=== PATIENT | female | born 1980 | race Caucasian/White ===

== ENCOUNTER 2016-11-28 06:08 | Inpatient (IN) ==
--- NOTE | 2016-11-27 20:31 | Discharge Summary ---
<Giovana Le - Last Filed: 11/27/16 20:27> Date of Encounter: 12/01/16 - Discharge Diagnosis (1) Aseptic loosening of prosthetic knee Priority: Primary Status: Acute Qualifiers: Encounter type: initial encounter Qualified Code(s): T84.038A - Mechanical loosening of other internal prosthetic joint, initial encounter; Z96.659 - Presence of unspecified artificial knee joint (2) Rheumatoid arthritis Priority: Secondary Status: Chronic Qualifiers: Rheumatoid arthritis location: unspecified site Rheumatoid factor presence : unspecified presence Qualified Code(s): M06.9 - Rheumatoid arthritis, unspecified (3) Asthma Priority: Secondary Status: Chronic Qualifiers: Asthma severity: unspecified severity Asthma complication type: uncomplicated Qualified Code(s): J45.909 - Unspecified asthma, uncomplicated - Discharge Medications Home Medications: Aspirin Enteric Coated [Aspirin EC] 325 mg PO BID #42 tablet. 11/27/16 [Rx] OxyCODONE Immed Rel [Roxicodone 5 MG] 5 - 10 mg PO Q6HR PRN #40 tablet 11/27/16 [Rx] Albuterol Sulfate [Albuterol Inhaler] 2 puff IH Q4HR PRN 11/28/16 [History] Fluticasone Propionate Nasal [Flonase] 1 spr NS BID 11/28/16 [History] Fluticasone Propionate [Flovent Hfa] 1 puff IH BID 11/28/16 [History] Montelukast [Singulair] 10 mg PO DAILY 11/28/16 [History] Pantoprazole Sodium [Protonix] 40 mg PO DAILY 11/28/16 [History] Allergies/Adverse Reactions: Allergies cephalexin [From Keflex] Allergy (Verified 11/29/16 23:17) Hives Primary care physician: Ginger Kirkpatrick, - Patient Status Disposition: Home, Self-Care Condition: Good - Discharge Instructions Follow Up With: Juanjose Hall MD [Partnered Physician] - 12/27/16 7:45 am Giovana Le, NADINE [Physician Product/Device Technologist] - 12/07/16 8:30 am Ginger Kirkpatrick MD [Primary Care Provider] - - Hospital Course Hospital course: Ms. Fernandez is a 36 year old female - Time Spent with Patient Total time spent providing and/or coordinating discharge services: <Juanjose Hall - Last Filed: 11/30/16 07:32> Date of Encounter: 11/30/16 Time of Encounter: 07:32 - Discharge Diagnosis (1) Aseptic loosening of prosthetic knee Priority: Primary Status: Acute Qualifiers: Encounter type: subsequent encounter Qualified Code(s): T84.038D - Mechanical loosening of other internal prosthetic joint, subsequent encounter; Z96.659 - Presence of unspecified artificial knee joint (2) Asthma Priority: Secondary Status: Chronic Qualifiers: Asthma severity: unspecified severity Asthma complication type: uncomplicated Qualified Code(s): J45.909 - Unspecified asthma, uncomplicated (3) Rheumatoid arthritis Priority: Secondary Status: Chronic Qualifiers: Rheumatoid arthritis location: unspecified site Rheumatoid factor presence : unspecified presence Qualified Code(s): M06.9 - Rheumatoid arthritis, unspecified Date of admission: 11/28/16 06:25 Primary care physician: iGnger Kirkpatrick, - Patient Status Functional capacity at discharge: uses cane/walker Overall status at discharge: patient is progressing back to baseline - Hospital Course Hospital course: Ms. Fernandez is a 36 year old female The patient had an uneventful postoperative course. They received antibiotics and physical therapy and were discharged in stable condition. There will follow -up in the office in 2 weeks. Aspirin DVT prophylaxis - Time Spent with Patient Total time spent providing and/or coordinating discharge services:
--- NOTE | 2016-11-28 06:25 | History & Physical Report ---
Date of Encounter: 11/28/16 Time of Encounter: 06:25 24 Hour HP Update - Instructions Instructions: If the History and Physical is less than 30 days old and was completed prior to A.M. admission and or procedure and has NOT been updated on calendar day of procedure please complete this update prior to performing procedure. - Update Patient reports changes in Medical Condition: No Changes in assessment/condition: No Changes in Medication: No Preop tests/diagnostics Reviewed: Yes Surgery Remains Indicated: Yes Consent for Planned Operative Procedure(s) Verified: Yes - Pre-Operative Checklist Preoperative Checklist Indicated: No Prophylactic Antibiotic Ordered: Yes Is VTE Prophylaxis Indicated?: Yes
[2016-11-28] MEDS ORDERED: Clindamycin 900 MG/50 ML 900 MG/50 ML IV.SOLN IVPB ONE (06:35)
[2016-11-28] MEDS ORDERED: Albuterol 2.5 MG/3 ML NEBULIZER IH ONE (06:37)
[2016-11-28] MEDS ORDERED: Ringers Solution, Lactated 1,000 ML IVC SCH ×2 (06:45→10:06)
[2016-11-28] MEDS ORDERED: Famotidine 20 MG/2 ML VIAL IVP ONE (07:06)
[2016-11-28] MEDS ORDERED: Scopolamine Patch 1.5 MG PATCH.TD72 TD ONE (07:06)
--- NOTE | 2016-11-28 07:10 | Anesthesia Evaluation PreOp ---
Date of Encounter: 11/28/16 Time of Encounter: 07:10 - Past History Planned Operation: Right TKA Revision Cardiac History: Denies any Significant Hx, Other (Anemia) Pulmonary History: Asthma CHILD SUPPORT SPECIALIST History: Denies Any Significant HX Other Medical History: GERD Anesthesia History: Past Anesthesia (Nausea/Vomitting) : No Test: Negative Alcohol Use: none Drug use: none Medications and Allergies Aspirin Enteric Coated [Aspirin EC] 325 mg PO BID #42 tablet. 11/27/16 [Rx] OxyCODONE Immed Rel [Roxicodone 5 MG] 5 - 10 mg PO Q6HR PRN #40 tablet 11/27/16 [Rx] Allergies cephalexin [From Keflex] Allergy (Unverified 11/22/16 10:53) See Comments - Meds/Allergy Pre-op Review Medications Reviewed: Yes Allergies Reviewed: Yes Beta Blockers on Current Med List: No Anesthesia Results - Labs Laboratory Tests 11/22/16 11/22/16 11/22/16 10:53 10:53 10:53 Hgb 14.0 Hct 40.8 Plt Count 255 PT 11.3 INR 1.0 APTT 27.4 Sodium 136 Potassium 4.0 BUN 14 Creatinine 0.74 Anesthesia Exam O2 Sat Height 1.68 m Height 1.68 m Height 1.68 m Weight 80.739 kg Weight 80.739 kg Weight 80.739 kg O2 Sat by Pulse Oximetry 100 Vital Signs Temp Pulse Resp BP Pulse Ox 98.2 F 81 18 100/71 100 11/28/16 06:23 11/28/16 06:23 11/28/16 06:23 11/28/16 06:23 11/28/16 06:23 Height: 5'5 Weight: 183 lbs NPO (# of Hours): MN - HEENT Pupil (Motor): Pupils equal, EOMI Mallampati: II Teeth: Normal Oral Opening: Greater than 3 - CHILD SUPPORT SPECIALIST LOC: Oriented CHILD SUPPORT SPECIALIST Motor: Normal RUE, Normal LUE, Normal RLE, Normal LLE, Normal Face CHILD SUPPORT SPECIALIST Sensory: Normal: RUE, LUE, RLE, LLE, Face - Cardiac Rhythm: Regular Murmur: None JVD: No Carotid Bruit: No - Pulmonary Breath Sounds: bilateral Clear Respiratory Effort: Symmetrical Anesthesia Assess/Plan ASA Score: 2 Modified Laurel Scale for Level of Consciousness: Cooperative, oriented, and tranquil Anesthetic Plan: General, Regional Monitoring Plan: Standard Monitors Recovery Plan: PACU (Discussed GA and RA, agrees to proceed)
[2016-11-28] MEDS ORDERED: *HR* FentaNYL (PF) 100 MCG/2 ML VIAL ONE (07:11)
[2016-11-28] MEDS ORDERED: *HR* Propofol 200 MG/20 ML VIAL IVP ONE (07:12)
[2016-11-28] MEDS ORDERED: *HR* Midazolam HCl 2 MG/2 ML VIAL ONE ×2 (07:12→07:15)
[2016-11-28] MEDS ORDERED: Lidocaine -MPF 2% 2 ML VIAL ONE (07:17)
[2016-11-28] MEDS ORDERED: Tetracaine/PF 20 MG/2 ML AMPUL SPINA ONE (07:17)
[2016-11-28] MEDS ORDERED: Ketamine *HR* 500 MG/10 ML MDV ONE (07:18)
--- NOTE | 2016-11-28 07:36 | Anesthesia Procedures ---
Date of Encounter: 11/28/16 Time of Encounter: 07:10 Procedures: Anesthesia - Nerve Block Procedure Date: 11/28/16 Time: 07:30 Pre-op Diagnosis: Effusion Rt TKA Surgical Procedure: Revision Rt TKA Checklist: Correct Patient Identifier Correct side: Right Blood Thinner: No Monitor Applied: EKG Supplemental Oxygen via Nasal Cannula (L/min): 2 Sedation: Versed (mg): 4 Sedation: Fentanyl (mcg): 50 Indication: Post Op Analgesia Pre-op Neuro Deficits: No Block Type: Femoral Catheter placed: No Depth at skin (cm): 4 Sterile Technique: Yes Ultrasound used: Yes Anatomy identified: Yes Visual spread of Local: Yes Neuro Stimulation: Yes Nerve Stimulator Range: 0.2 - 0.4 mA Blood on Needle Aspiration: No Smooth Injection of Local: Yes Pain with Injection of Local: No Prep: Chlorhexadine, Alcohol Needle: 22 x 50 mm Stimuplex Local: Tetracaine (40mg), Other (Bupivacaine 0.5%) Volume (cc): 30 Number of Attempts: 1 Complications: None/effective block Vitals: Vital Signs/O2 Sat/Glucose, Most Current Temp Pulse Resp BP Pulse Ox 11/28/16 07:30 88 102/74 95 11/28/16 07:21 76 18 119/67 100 11/28/16 06:23 98.2 F 81 18 100/71 100
[2016-11-28] MEDS ORDERED: *HR* Promethazine 25 MG/ML VIAL IVP PRN (07:45)
[2016-11-28] MEDS ORDERED: Ondansetron 4 MG/2 ML VIAL ONE (07:55)
[2016-11-28] MEDS ORDERED: Dexamethasone 4 MG/ML VIAL ONE (07:55)
[2016-11-28] MEDS ORDERED: *HR* HYDROmorphone 2 MG/ML SYRINGE ONE (07:59)
[2016-11-28] MEDS ORDERED: Ketorolac 30 MG/ML VIAL ONE (08:25)
--- NOTE | 2016-11-28 08:35 | Orthopedic Operative Note ---
Date of procedure: 11/28/16 Pre-op diagnosis: Recurrent effusions aseptic loosening right total knee Post-op diagnosis: same Procedure: Procedure: Right revision tibial component Estimated blood loss: 200 cc Hardware: Arthrex tibia size 6, 14 x 50 stem, 18 PS Elicia Exam Under anesthesia: Full flexion full extension well-healed incision swelling no erythema no varus valgus instability Procedural Notes: Loosening of tibial component significant effusion extensive synovitis Operative procedure: The patient was brought to the operating room and placed on the operating room table. After general anesthesia was administered the operative knee was examined. Findings were noted in the exam under anesthesia. The operative extremity was prepped and draped in sterile surgical fashion. The patient received IV antibiotics prior to skin incision. A standard midline incision was made centered over the patella. The incision was made through the skin and subcutaneous tissue through the old incision. A medial parapatellar tendon approach was performed. Care was taken to preserve tissue along the medial aspect of the patella. And to protect the patella tendon. The deep MCL was released off the medial tibia. The infra patella fat pad was excised. Cultures were obtained as well as Gram stain. 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 An extensive synovectomy was performed. The knee was brought into flexion the tibial poly-was removed. The femur was well fixed. Attention was then turned to the tibial component. The tibial component was loose and removed with an osteotome without any bone loss. Tibia was recut just below the level of the cement mantle. The tibia was prepared first sized to a 6 reamed to a 14 x 50 stem. The finishing punch was seated. Trial had good fit and fixation. Trial reduction revealed full extension and full flexion no varus valgus instability with an 18 PS Elicia. Trial components removed knee sat for 2 minutes with a Betadine saline solution. It was irrigated out with pulse irrigation. Components were assembled on the back table. The tibia cemented. The 18 PS Elicia was seated and secure. The had full flexion and full extension and excellent patella tracking no varus valgus instability. After the cement hardened the knee was irrigated out again. The knee was taken through a range of motion had excellent patella tracking. The extensor mechanism was closed with a running #2 Fiberwire suture and a running #2 PDS suture. The deep tissue was irrigated and closed deep with #1 PDS suture superficially with 0 PDS suture. The skin was closed with Dermabond and skin jc. The patient was placed in a sterile dressing and postoperative brace. They were extubated and transferred to recovery room in stable condition. Anesthesia: [facility] Surgeon: Juanjose Hall Demurrage Man: Giovana Le Condition: stable Disposition: PACU
[2016-11-28] MEDS ORDERED: *HR* HYDROmorphone (PF) 1 MG/ML SYRINGE ONE ×2 (09:20→09:31)
[2016-11-28] MEDS: *HR* HYDROmorphone (PF) 1 MG/ML SYRINGE IVP PRN ×6 (09:25→23:17)
[2016-11-28 09:35] LABS: Hematocrit 36.5 % (35.3-44.9); Hemoglobin 12.8 g/dL (11.5-15.4)
--- NOTE | 2016-11-28 09:53 | Anesthesia Evaluation Post Op ---
Date of Encounter: 11/28/16 Time of Encounter: 09:51 - Vital Signs Vital Signs: Vital Signs/O2 Sat, Most Current Temp Pulse Resp BP Pulse Ox 98.0 F 83 16 119/72 96 11/28/16 09:35 11/28/16 09:45 11/28/16 09:45 11/28/16 09:45 11/28/16 09:45 - Lungs Lungs: Clear Ascult./Percussion - Airway Airway: Non-obstructed - Cardiovascular Regular Rate - Mental Status Mental Status: Alert & Oriented, Answers Appropriately - Pain Pain Scale: 4 Pain Scale used: Numeric (1 - 10) - Nausea Vomiting Nausea Vomiting: Not Present - Hydration Hydration: Ice chips, Has not voided - Discharge PostOp Status: Transfer Patient to floor
[2016-11-28] MEDS ORDERED: Ondansetron 4 MG/2 ML VIAL IVP PRN (10:06)
[2016-11-28] MEDS ORDERED: Sennosides 8.6 MG TABLET PO PRN (10:06)
[2016-11-28] MEDS ORDERED: MOM Conc 10 ML UD.LIQ PO PRN (10:06)
[2016-11-28] MEDS ORDERED: Albuterol Neb 1.25 MG/3 ML VIAL IH ONE (10:06)
[2016-11-28] MEDS ORDERED: *HR* OxyCODONE Immed Rel 5 MG TABLET PO PRN (10:06)
[2016-11-28] MEDS ORDERED: Naloxone 0.4 MG/ML INJ IVP PRN (10:06)
[2016-11-28] MEDS ORDERED: Acetaminophen 325 MG TABLET PO PRN (10:06)
[2016-11-28] MEDS ORDERED: Temazepam 15 MG CAPSULE PO PRN (10:06)
[2016-11-28] MEDS ORDERED: Clindamycin 900 MG/50 ML 900 MG/50 ML IV.SOLN IVPB SCH (10:06)
[2016-11-28] MEDS: FLUTICASONE PROPIONATE IH SCH ×2 (13:15→20:38)
[2016-11-28] MEDS: Fluticasone Propionate Nasal 50 MCG/SPRAY BOTTLE NS SCH ×2 (13:16→20:38)
[2016-11-28] MEDS ORDERED: Acetaminophen IV 1,000 MG/100 ML INFUS..BTL IVPB PRN (14:52)
[2016-11-28] MEDS: Clindamycin 900 MG/50 ML 900 MG/50 ML IV.SOLN IVPB SCH ×2 (15:37→23:17)
[2016-11-28] MEDS: *HR* Enoxaparin 30 MG/0.3 ML SYRINGE SQ SCH (17:32)
[2016-11-28] MEDS ORDERED: *HR* Enoxaparin 30 MG/0.3 ML SYRINGE SQ SCH (18:00)
[2016-11-28] MEDS: *HR* OxyCODONE Immed Rel 5 MG TABLET PO PRN (20:36)
[2016-11-29] MEDS: *HR* OxyCODONE Immed Rel 5 MG TABLET PO PRN ×4 (04:54→23:23)
[2016-11-29] MEDS: *HR* Enoxaparin 30 MG/0.3 ML SYRINGE SQ SCH ×2 (04:55→16:34)
[2016-11-29] MEDS: Ketorolac 30 MG/ML VIAL IVP PRN (06:31)
--- NOTE | 2016-11-29 06:33 | Orthopedics Progress Note ---
Date of Encounter: 11/29/16 Time of Encounter: 06:33 - Assessment and Plan (1) Aseptic loosening of prosthetic knee Current Visit: Yes Status: Acute Qualifiers: Encounter type: subsequent encounter Qualified Code(s): T84.038D - Mechanical loosening of other internal prosthetic joint, subsequent encounter; Z96.659 - Presence of unspecified artificial knee joint (2) Asthma Current Visit: Yes Status: Chronic Qualifiers: Asthma severity: unspecified severity Asthma complication type: uncomplicated Qualified Code(s): J45.909 - Unspecified asthma, uncomplicated (3) Rheumatoid arthritis Current Visit: Yes Status: Chronic Qualifiers: Rheumatoid arthritis location: unspecified site Rheumatoid factor presence : unspecified presence Qualified Code(s): M06.9 - Rheumatoid arthritis, unspecified Subjective Interval history: Patient was seen this morning doing well without complaints. Afebrile vital signs stable. Operative extremity: Neurovascularly intact Dressing clean dry and intact Calves nontender Assessment and plan: Continue with postoperative care Hematocrit 32 Objective Vital signs: Vital Signs Temp Pulse Resp BP Pulse Ox 11/29/16 04:50 98 F 67 18 108/68 98 11/28/16 23:52 98.4 F 78 17 99/63 96 11/28/16 19:35 98.8 F 80 17 121/67 96 11/28/16 15:08 98.4 F 74 18 106/63 98 11/28/16 14:56 77 16 112/72 98 11/28/16 13:08 97.0 F L 77 16 112/72 98 11/28/16 12:30 82 16 107/71 98 11/28/16 11:20 97.4 F L 80 16 104/67 92 L 11/28/16 10:37 97.6 F 69 18 110/79 98 11/28/16 10:08 97.5 F L 71 16 117/70 92 L 11/28/16 09:55 98.0 F 80 16 117/77 97 11/28/16 09:45 83 16 119/72 96 11/28/16 09:35 98.0 F 83 16 115/73 97 11/28/16 09:25 80 16 112/78 98 11/28/16 09:15 74 12 123/84 98 11/28/16 09:05 97.0 F L 74 12 116/94 100 11/28/16 07:42 87 18 102/65 99 11/28/16 07:30 88 102/74 95 11/28/16 07:21 76 18 119/67 100 Intake and Output 11/28/16 11/28/16 11/29/16 15:59 23:59 07:59 Intake Total 0 / 0 150 / 150 Balance 0 / 0 150 / 150 Intake: IV Fluids 50 / 50 Cleocin 900 MG/50 ML 900 50 / 50 mg In 50 ml @ 50 mls/hr IVPB Q8HR [facility] Rx#: [id number] Oral 0 / 0 100 / 100 Other: Meal Dinner Percent of Meal Consumed 100% - Labs CBC & BMP: 11/29/16 05:02 Labs: Abnormal lab results Hgb 11.0 g/dL (11.5-15.4) L D 11/29/16 05:02 Hct 32.0 % (35.3-44.9) L 11/29/16 05:02 - VTE Documentation of Mechanical Device: Venous foot pump, device Consult Discharge Plan - Plan Referrals: Ginger Kirkpatrick MD [Primary Care Provider] -
[2016-11-29 06:38] LABS: BUN/Creatinine Ratio 14 (6-26); Blood Urea Nitrogen 10 mg/dL (7-20); Calcium 8.4 mg/dL (8.6-10.8); Carbon Dioxide 24 mEq/L (19-29); Chloride 103 mEq/L (98-109); Glucose 111 mg/dL (70-99); Osmolality,Calculated 282 (280-300); Potassium 3.7 mEq/L (3.5-4.5); Sodium 136 mEq/L (136-145); eGFR For African Americans > 60 (> 60); eGFR For Non-African Americans > 60 (> 60)
[2016-11-29] MEDS: FLUTICASONE PROPIONATE IH SCH ×2 (07:26→20:46)
[2016-11-29] MEDS: Fluticasone Propionate Nasal 50 MCG/SPRAY BOTTLE NS SCH ×2 (07:27→20:46)
[2016-11-29] MEDS: *HR* HYDROmorphone (PF) 1 MG/ML SYRINGE IVP PRN (20:46)
[2016-11-30] MEDS: Ketorolac 30 MG/ML VIAL IVP PRN ×2 (00:51→08:16)
[2016-11-30] MEDS: *HR* Enoxaparin 30 MG/0.3 ML SYRINGE SQ SCH (05:06)
[2016-11-30] MEDS: *HR* OxyCODONE Immed Rel 5 MG TABLET PO PRN ×2 (05:06→10:41)
[2016-11-30] MEDS: *HR* HYDROmorphone (PF) 1 MG/ML SYRINGE IVP PRN (05:59)
[2016-11-30 06:42] LABS: Hematocrit 33.3 % (35.3-44.9); Hemoglobin 11.5 g/dL (11.5-15.4)
[2016-11-30 06:54] LABS: BUN/Creatinine Ratio 14 (6-26); Blood Urea Nitrogen 10 mg/dL (7-20); Calcium 8.3 mg/dL (8.6-10.8); Carbon Dioxide 24 mEq/L (19-29); Chloride 103 mEq/L (98-109); Glucose 107 mg/dL (70-99); Osmolality,Calculated 284 (280-300); Potassium 3.6 mEq/L (3.5-4.5); Sodium 137 mEq/L (136-145); eGFR For African Americans > 60 (> 60); eGFR For Non-African Americans > 60 (> 60)
--- NOTE | 2016-11-30 07:33 | Orthopedics Progress Note ---
Date of Encounter: 11/30/16 Time of Encounter: 07:33 - Assessment and Plan (1) Aseptic loosening of prosthetic knee Current Visit: Yes Status: Acute Qualifiers: Encounter type: subsequent encounter Qualified Code(s): T84.038D - Mechanical loosening of other internal prosthetic joint, subsequent encounter; Z96.659 - Presence of unspecified artificial knee joint (2) Asthma Current Visit: Yes Status: Chronic Qualifiers: Asthma severity: unspecified severity Asthma complication type: uncomplicated Qualified Code(s): J45.909 - Unspecified asthma, uncomplicated (3) Rheumatoid arthritis Current Visit: Yes Status: Chronic Qualifiers: Rheumatoid arthritis location: unspecified site Rheumatoid factor presence : unspecified presence Qualified Code(s): M06.9 - Rheumatoid arthritis, unspecified Subjective Interval history: Patient was seen this morning doing well without complaints. Afebrile vital signs stable. Operative extremity: Neurovascularly intact Dressing clean dry and intact Calves nontender Assessment and plan: Continue with postoperative care Hematocrit 33 discharged today Objective Vital signs: Vital Signs Temp Pulse Resp BP Pulse Ox 11/30/16 06:32 98.1 F 74 16 127/78 96 11/29/16 23:19 97.9 F 70 16 122/74 98 11/29/16 20:49 97.7 F 60 16 125/52 89 L 11/29/16 15:35 98.6 F 83 18 98/59 97 11/29/16 13:53 108/66 11/29/16 11:07 97.6 F 80 18 93/60 99 Intake and Output 11/29/16 11/29/16 11/30/16 15:59 23:59 07:59 Intake Total 220 / 220 Balance 220 / 220 Intake: IV Fluids 100 / 100 Ofirmev 1,000 mg In 100 100 / 100 ml @ 400 mls/hr IVPB Q6HR PRN Rx#:[id number] Oral 120 / 120 Other: Meal Lunch Percent of Meal Consumed 100% # Voids 1 4 - Labs CBC & BMP: 11/30/16 05:56 11/30/16 05:56 Labs: Abnormal lab results Hct 33.3 % (35.3-44.9) L 11/30/16 05:56 Glucose 107 mg/dL (70-99) H 11/30/16 05:56 Calcium 8.3 mg/dL (8.6-10.8) L 11/30/16 05:56 - VTE Documentation of Mechanical Device: Venous foot pump, device Consult Discharge Plan - Plan Referrals: Juanjose Hall MD [Partnered Physician] - 12/27/16 7:45 am Giovana Le, PAC [Physician Board Liner Operator] - 12/07/16 8:30 am Ginger Kirkpatrick MD [Primary Care Provider] -
[2016-11-30] MEDS: Fluticasone Propionate Nasal 50 MCG/SPRAY BOTTLE NS SCH (08:15)
[2016-11-30] MEDS: FLUTICASONE PROPIONATE IH SCH (10:58)
[2016-11-30 11:30] VITALS: BP 129/76
== END 2016-11-30 10:59 | disposition home or self-care (01) | DRG 302 ==
LOC: SAMDAY 06:08 → 3NENU 06:25
PROVIDERS: ADMIT Orthopaedic Surgery; ATTEND Orthopaedic Surgery

== ENCOUNTER 2016-11-30 20:04 | Observation (INO) ==
--- NOTE | 2016-11-30 20:28 | Emergency Department Note ---
Disposition Clinical Impression: Leg edema, right, Postoperative pain of right knee, Acute edema, Discoloration of skin, Anemia Disposition: Admitted As Inpatient General Adult HPI - General Chief complaint: ED Extremity Problem,Nontraumatic Stated complaint: R leg swelling, Red, fever SP 11/28 Time Seen by Provider: 11/30/16 20:27 Source: patient Limitations: no limitations - History of Present Illness HPI Narrative: 36-year-old female status post knee surgery reports the emergency department after being discharged from the hospital earlier today. The patient reports her right leg swelled up suddenly and became increasingly painful. The patient denies any new injury. There has been no coldness blueness numbness or weakness in the right lower extremity. There is no history of fever. The patient denies chest pain short of breath or abdominal pain. She states she was receiving Lovenox injections in the hospital, but was switched to aspirin earlier today. The patient has had no left lower extremity swelling. She has had no back pain or urinary symptoms. No falls or weakness or numbness of the arms or legs no bowel or bladder problems. There is no history of headache neck stiffness or rash. The patient denies at this time. She reports she took pain medications at home are not sufficient for her pain. She called her personal surgeon Dr. Hall, who recommended she come to the ED for evaluation for DVT. Pain Scale: 10 - Related Data Home Medications Medication Instructions Recorded Confirmed RX: Albuterol Sulfate [Albuterol 2 puff IH Q4HR PRN 11/28/16 11/28/16 Inhaler] RX: Fluticasone Propionate Nasal 1 spr NS BID 11/28/16 11/28/16 [Flonase] RX: Fluticasone Propionate 1 puff IH BID 11/28/16 11/28/16 [Flovent Hfa] RX: Montelukast [Singulair] 10 mg PO DAILY 11/28/16 11/28/16 RX: Pantoprazole Sodium [Protonix] 40 mg PO DAILY 11/28/16 11/28/16 Previous Rx's Medication Instructions Recorded RX: Aspirin Enteric Coated 325 mg PO BID #42 tablet. 11/27/16 [Aspirin EC] RX: OxyCODONE Immed Rel 5 - 10 mg PO Q6HR PRN #40 tablet 11/27/16 [Roxicodone 5 MG] Allergies Allergy/AdvReac Type Severity Reaction Status Date / Time cephalexin [From Keflex] Allergy Hives Verified 11/29/16 23:17 All systems ED: reviewed and negative except as stated. Past Medical History - Past Medical History Medical history: Reports: other (Knee surgery) Surgical history: Reports: other Psychiatric history: Reports: no psych history - Social History Smoking Status: Never smoker Smokeless Tobacco Status: No Alcohol use: Reports: none Drug use: Reports: none Physical Exam - General Limitations: no limitations General appearance: alert, in no apparent distress - Head Head exam: atraumatic, normocephalic, normal inspection - Eye Eye exam: Present: normal appearance, PERRL, EOMI - ENT ENT exam: normal exam, normal oropharynx, mucous membranes moist - Neck Neck exam: Present: normal inspection, full ROM, trachea midline - Chest Chest inspection: Present: symmetric chest wall rise. Absent: tenderness - Respiratory Respiratory exam: Present: normal lung sounds bilaterally. Absent: respiratory distress - Cardiovascular Cardiovascular exam: Present: regular rate, normal rhythm, normal heart sounds - Abdominal Exam Abdominal exam: Present: soft, Non-Tender. Absent: tenderness, distention, guarding, rebound, rigidity - Extremities Exam Extremities exam: Present: tenderness, normal capillary refill, pedal edema, calf tenderness, other. Absent: normal inspection (The surgical wound is covered but appears to be intact and not bleeding. There linda and swelling in the right thigh and calf. Patient does have a good dorsalis pedis pulse on the right. The left lower extremity and upper extremity is warm and well perfused without cyanosis or edema show good range of motion throughout. The right lower extremity motion is limited secondary to recent surgery and pain. All 4 extremity as are warm and well perfused without cyanosis, there is no evidence of brock neurovascular or neuromuscular compromise.) - Expanded Lower Extremity Exam Neurovascular/Tendon exam: Present: normal capillary refill, motor deficit. Absent: pulse deficit, sensory deficit, tendon deficit - Back Exam Back exam: Present: normal inspection, full ROM. Absent: tenderness, CVA tenderness (R), CVA tenderness (L) - Neurological Exam Neurological exam: Present: alert, oriented X3, CN II-XII intact. Absent: motor sensory deficit - Psychiatric Psychiatric exam: Present: normal affect, normal mood - Skin Skin exam: Present: warm, dry, intact, normal color, other (Erythema in the right leg some around the surgical site no crepitance of the skin no blackening no blistering or abscess.) Course Course Narrative: Secondary examination of the right lower extremity did reveal increasing redness and some bruising laterally and medially. There is no crepitance of the skin, no blackening or blistering, there is no evidence of acute neurovascular disruption. Vital Signs Temperature 98.9 F 11/30/16 20:08 Pulse Rate 99 11/30/16 20:08 Respiratory Rate 20 11/30/16 20:08 Blood Pressure 129/90 11/30/16 20:08 O2 Sat by Pulse Oximetry 99 11/30/16 20:08 Temperature 98.9 F 11/30/16 20:08 Pulse Rate 90 11/30/16 22:13 Respiratory Rate 16 11/30/16 22:13 Blood Pressure 125/66 11/30/16 22:13 O2 Sat by Pulse Oximetry 95 11/30/16 22:13 Oxygen Delivery Oxygen Delivery Room Air Medical Decision Making - MDM Narrative Medical decision making narrative: The patient has significant edema in the right lower extremity, her right calf measures 2 inches larger than the left at about 5 inches below the patella. And 2 inches larger about 5 inches above the patella. Initially had some mild erythematous discoloration around the wound site, however develop more erythema and some bruising medial lateral to the knee itself. The patient had a bounding dorsalis pedis pulse, her laboratory testing shows a slightly elevated CRP, her ultrasound was negative. Based on the patient's acute edema and significant pain, I consulted with the patient's personal surgeon Dr. Hall, who asked me to consult the hospitalist for primary admit. I discussed the case with the hospitalist Dr. Rodriguez, regarding potential medical admit as primary, she felt orthopedics should be the primary admitting service, she reported she will be available to consult if needed. I spoke with Dr. Hall again, he will admit the patient to the hospital under his service. We discussed potential imaging, he did not feel imaging would be required, compartment syndrome and infectious processes were also considered. Dr. Hall felt that it may be just a reaction to some of the material utilized in surgery. Broad spectrum antibiotic coverage was initiated as a precaution.. Pain control measures were entailed. The patient and family do not feel comfortable taking the patient home based on the acute swelling, the patient is currently stable. We spoke with bed management, they are placing the patient back on the orthopedics floor where she was originally managed. - Lab Data Lab results reviewed: Yes I reviewed the patient's lab results. Result diagrams: 11/30/16 20:48 11/30/16 20:48 Lab Results 11/30/16 11/30/16 11/30/16 Range/Units 20:48 20:48 20:48 WBC 10.1 (4.3-11.1) K/mcL RBC 3.53 L (3.82-4.97) M/mcL Hgb 10.7 L (11.5-15.4) g/dL Hct 30.7 L (35.3-44.9) % MCV 87.0 (83.0-100.0) fL MCH 30.3 (28.0-33.3) pg MCHC 34.9 (31.6-35.5) g/dL RDW 12.7 (11.5-14.5) % Plt Count 225 (140-400) K/mcL MPV 9.0 L (9.4-12.4) fL Immature Gran % 0.9 (0-4) % Seg Neutrophils % 65.9 % Lymphocytes % 25.5 % Monocytes % 6.5 % Eosinophils % 0.8 % Basophils % 0.4 % Neutrophils # 6.6 (1.6-8.9) K/mcL Lymphocytes # 2.6 (0.6-4.6) K/mcL Monocytes # 0.7 (0.0-1.3) K/mcL Eosinophils # 0.1 (0.0-0.6) K/mcL Basophils # 0.0 (0.0-0.2) K/mcL Immature Plt Fraction 2.1 (1.1-6.1) % PT 11.8 (9.4-12.1) Seconds INR 1.1 APTT (26.0-36.0) Seconds Sodium 137 (136-145) mEq/L Potassium 4.0 (3.5-4.5) mEq/L Chloride 103 (98-109) mEq/L Carbon Dioxide 26 (19-29) mEq/L BUN 10 (7-20) mg/dL Creatinine 0.73 (0.57-1.11) mg/dL Est GFR ( Amer) > 60 (> 60) Est GFR (Non-Af Amer) > 60 (> 60) BUN/Creatinine Ratio 14 (6-26) Glucose 107 H (70-99) mg/dL Calculated Osmolality 284 (280-300) Lactic Acid (0.5-2.2) mmol/L Calcium 8.8 (8.6-10.8) mg/dL Total Bilirubin 1.0 (0.2-1.2) mg/dL Direct Bilirubin 0.3 (0.0-0.5) mg/dL Indirect Bilirubin 0.7 (0.0-1.2) mg/dL AST 16 (5-34) Units/L ALT 14 (0-55) Units/L Alkaline Phosphatase 51 (38-126) Units/L Creatine Kinase (29-168) Units/L C-Reactive Protein (Less than 5) mg/L Serum Total Protein 6.4 (6.0-8.3) g/dL Albumin 3.5 (3.5-5.0) g/dL Globulin 2.9 (2.4-3.5) g/dL Albumin/Globulin Ratio 1.2 (1.1-2.2) 11/30/16 11/30/16 11/30/16 Range/Units 20:48 20:48 20:48 WBC (4.3-11.1) K/mcL RBC (3.82-4.97) M/mcL Hgb (11.5-15.4) g/dL Hct (35.3-44.9) % MCV (83.0-100.0) fL MCH (28.0-33.3) pg MCHC (31.6-35.5) g/dL RDW (11.5-14.5) % Plt Count (140-400) K/mcL MPV (9.4-12.4) fL Immature Gran % (0-4) % Seg Neutrophils % % Lymphocytes % % Monocytes % % Eosinophils % % Basophils % % Neutrophils # (1.6-8.9) K/mcL Lymphocytes # (0.6-4.6) K/mcL Monocytes # (0.0-1.3) K/mcL Eosinophils # (0.0-0.6) K/mcL Basophils # (0.0-0.2) K/mcL Immature Plt Fraction (1.1-6.1) % PT (9.4-12.1) Seconds INR APTT 25.9 L (26.0-36.0) Seconds Sodium (136-145) mEq/L Potassium (3.5-4.5) mEq/L Chloride (98-109) mEq/L Carbon Dioxide (19-29) mEq/L BUN (7-20) mg/dL Creatinine (0.57-1.11) mg/dL Est GFR ( Amer) (> 60) Est GFR (Non-Af Amer) (> 60) BUN/Creatinine Ratio (6-26) Glucose (70-99) mg/dL Calculated Osmolality (280-300) Lactic Acid 0.8 (0.5-2.2) mmol/L Calcium (8.6-10.8) mg/dL Total Bilirubin (0.2-1.2) mg/dL Direct Bilirubin (0.0-0.5) mg/dL Indirect Bilirubin (0.0-1.2) mg/dL AST (5-34) Units/L ALT (0-55) Units/L Alkaline Phosphatase (38-126) Units/L Creatine Kinase 77 (29-168) Units/L C-Reactive Protein 51 H (Less than 5) mg/L Serum Total Protein (6.0-8.3) g/dL Albumin (3.5-5.0) g/dL Globulin (2.4-3.5) g/dL Albumin/Globulin Ratio (1.1-2.2)
[2016-11-30] MEDS ORDERED: Ondansetron 4 MG/2 ML VIAL IVP ONE (20:40)
[2016-11-30] MEDS ORDERED: *HR* HYDROmorphone (PF) 1 MG/ML SYRINGE IVP ONE ×3 (20:40→22:03)
[2016-11-30 21:01] LABS: Basophils % 0.4 %; Eosinophils # 0.1 K/mcL (0.0-0.6); Eosinophils % 0.8 %; Hematocrit 30.7 % (35.3-44.9); Hemoglobin 10.7 g/dL (11.5-15.4); Immature Granulocytes % 0.9 % (0-4); Immature Platelets 2.1 % (1.1-6.1); Lymphocytes # 2.6 K/mcL (0.6-4.6); Lymphocytes % 25.5 %; Mean Corpuscular HGB Conc 34.9 g/dL (31.6-35.5); Mean Corpuscular Hemoglobin 30.3 pg (28.0-33.3); Monocytes # 0.7 K/mcL (0.0-1.3); Monocytes % 6.5 %; Neutrophils # 6.6 K/mcL (1.6-8.9); Platelet Count 225 K/mcL (140-400); Red Blood Count 3.53 M/mcL (3.82-4.97); Red Cell Distribution Width 12.7 % (11.5-14.5); Segmented Neutrophils % 65.9 %
[2016-11-30 21:07] LABS: INR 1.1; Prothrombin Time 11.8 Seconds (9.4-12.1)
[2016-11-30 21:14] LABS: Alanine Aminotransferase 14 Units/L (0-55); Albumin 3.5 g/dL (3.5-5.0); Albumin/Globulin Ratio 1.2 (1.1-2.2); Alkaline Phosphatase 51 Units/L (38-126); Aspartate Amino Transferase 16 Units/L (5-34); BUN/Creatinine Ratio 14 (6-26); Bilirubin,Direct 0.3 mg/dL (0.0-0.5); Bilirubin,Indirect 0.7 mg/dL (0.0-1.2); Blood Urea Nitrogen 10 mg/dL (7-20); C-Reactive Protein 51 mg/L (Less than 5); Calcium 8.8 mg/dL (8.6-10.8); Carbon Dioxide 26 mEq/L (19-29); Chloride 103 mEq/L (98-109); Creatine Kinase 77 Units/L (29-168); Globulin 2.9 g/dL (2.4-3.5); Glucose 107 mg/dL (70-99); Osmolality,Calculated 284 (280-300); Sodium 137 mEq/L (136-145); Total Protein 6.4 g/dL (6.0-8.3); eGFR For African Americans > 60 (> 60); eGFR For Non-African Americans > 60 (> 60)
[2016-11-30] MEDS ORDERED: Vancomycin 1,000 MG in D5% in Water 250 ML IVPB ONE (21:45)
[2016-11-30] MEDS ORDERED: Piperacillin/Tazobactam 3.375 GM in D5% in Water (Mini-Bag+) 100 ML IVPB ONE (21:46)
[2016-12-01] MEDS: *HR* OxyCODONE Immed Rel 5 MG TABLET PO PRN ×5 (00:44→21:41)
[2016-12-01] MEDS: *HR* HYDROmorphone (PF) 1 MG/ML SYRINGE IVP PRN ×2 (06:41→11:33)
[2016-12-01] MEDS ORDERED: Ketorolac 15 MG/ML VIAL IVP PRN (07:50)
[2016-12-01] MEDS ORDERED: Dexamethasone 4 MG/ML VIAL IVP ONE (08:00)
[2016-12-01] MEDS ORDERED: ALPRAZolam 0.5 MG TABLET PO PRN (08:06)
--- NOTE | 2016-12-01 08:06 | Orthopedic History & Physical ---
Date of Encounter: 12/01/16 Time of Encounter: 08:00 History of Present Illness HPI: Ms. Fernandez is a 36 year old female He is status post right total knee replacement revision tibial component on Monday. Patient was discharged yesterday doing well. Patient had increased pain and swelling over the early evening yesterday with some redness around her bandage. Patient went to the emergency room was admitted Doppler in the emergency room was negative. Physical exam patient is slightly agitated the erythema around the incision is related to what appears to be the activator for the prinio, the incision is Fout drainage [place] are intact. Patient has swelling no tenderness in the calf neurovascular intact. Patient is admitted for pain control with a contact dermatitis we will obtain x- rays placed on Benadryl reevaluate in the morning. Past Med Surg Social Fam HX - Past Medical History Medical history: arthritis, GERD Psychiatric history: no psych history - Past Surgical History Surgical History: knee replacement, other - Social History Smoking Status: Never smoker Smokeless Tobacco Status: No Alcohol use: rarely, occasionally Drug use: none - Family History Grandmother Living Status: Still Living Hx Family Cardiac Disorders: Yes Grandfather Living Status: Cause of : Lung cancer Hx Family Cardiac Disorders: Yes (MD) Hx Family Cancer: Yes (Small cell lung cancer) Hx Family Endocrine Disorder: Yes (DM) Sister Living Status: Still Living Hx Family Cancer: Yes (BONE CANCER) Hx Family Musculoskeletal Disorders: Yes (Broussard sarcoma) Medications and Allergies Aspirin Enteric Coated [Aspirin EC] 325 mg PO BID #42 tablet. 11/27/16 [Rx] OxyCODONE Immed Rel [Roxicodone 5 MG] 5 - 10 mg PO Q6HR PRN #40 tablet 11/27/16 [Rx] Albuterol Sulfate [Albuterol Inhaler] 2 puff IH Q4HR PRN 11/28/16 [History] Fluticasone Propionate Nasal [Flonase] 1 spr NS BID 11/28/16 [History] Fluticasone Propionate [Flovent Hfa] 1 puff IH BID 11/28/16 [History] Montelukast [Singulair] 10 mg PO DAILY 11/28/16 [History] Pantoprazole Sodium [Protonix] 40 mg PO DAILY 11/28/16 [History] Allergies cephalexin [From Keflex] Allergy (Verified 11/29/16 23:17) Hives All Systems Reviewed: A 10-system review of systems was performed and is negative for pertinent findings except as documented above in the HPI. Physical Exam - Constitutional Vitals: Temp Pulse Resp BP Pulse Ox 98.1 F 76 16 111/75 97 12/01/16 04:53 12/01/16 04:53 12/01/16 04:53 12/01/16 04:53 12/01/16 04:53 Results - Labs Result Diagrams: 11/30/16 20:48 11/30/16 20:48 Labs: Abnormal lab results RBC 3.53 M/mcL (3.82-4.97) L 11/30/16 20:48 Hgb 10.7 g/dL (11.5-15.4) L 11/30/16 20:48 Hct 30.7 % (35.3-44.9) L 11/30/16 20:48 MPV 9.0 fL (9.4-12.4) L 11/30/16 20:48 APTT 25.9 Seconds (26.0-36.0) L 11/30/16 20:48 Glucose 107 mg/dL (70-99) H 11/30/16 20:48 C-Reactive Protein 51 mg/L (Less than 5) H 11/30/16 20:48 All other labs normal. - VTE Documentation of Mechanical Device: Venous foot pump, device
[2016-12-01] MEDS: Ringers Solution, Lactated 1,000 ML IVC SCH ×2 (09:09→21:49)
--- NOTE | 2016-12-01 18:07 | Venous Imaging Report ---
LE Venous Duplex Patient Name:Ibrahima Fernandez Order Number:[id number] Procedure Date:11/30/2016 Date:1980Age:36 yrs Gender:Female Location:[facility] ED Room #: ER26 Back End Developer:Ramandeep Duff RDCS Referring MD:Shelton Menendez MD baking factory worker:Ginger Kirkpatrick MD Reading MD:Ja Savage MD Primary Indications:Swelling of limb Secondary Indications: Risk Factors Yes/No Anticoagulants Yes Recent Surgery Yes Impressions: Normal right lower extremity deep and superficial venous exam. Recommendations: Preliminary given to Dr Menendez in ED. Findings Venous Duplex Results: Right: Venous imaging of the lower extremity reveals full patency and normal vessel compressibility of the right distal iliac, right common femoral, right superficial femoral, right popliteal, right posterior tibial, right peroneal, right great saphenous and right lesser saphenous. Doppler signals in the evaluated veins were normal. Prior Study: No prior study available for comparison. Lower Extremity Venous Duplex Side Vein Compress Spontaneous Flow Augment Diameter (cm) Depth (cm) Right Distal Iliac Normal Yes Phasic Yes Right Common Femoral Normal Yes Phasic Yes Right Superficial Femoral Normal Yes Phasic Yes Right Popliteal Normal Yes Phasic Yes Right Posterior Tibial Normal Yes Phasic Yes Right Peroneal Normal Yes Phasic Yes Right Great Saphenous Normal Yes Phasic Yes Right Lesser Saphenous Normal Yes Phasic Yes Updated by Ja Savage MD on 12/01/2016 6:04:02 PM electronically signed on 12/01/2016 6:04:11 PM with status of Final
[2016-12-02] MEDS: *HR* OxyCODONE Immed Rel 5 MG TABLET PO PRN ×2 (03:28→09:33)
--- NOTE | 2016-12-02 06:23 | Discharge Summary ---
Date of Encounter: 12/02/16 Time of Encounter: 06:20 - Discharge Diagnosis (1) Contact dermatitis Priority: Primary Status: Acute Qualifiers: Contact dermatitis type: allergic Contact dermatitis trigger: adhesive Qualified Code(s): L23.1 - Allergic contact dermatitis due to adhesives (2) Acute edema Priority: Primary Status: Acute (3) Aseptic loosening of prosthetic knee Priority: Secondary Status: Acute Qualifiers: Encounter type: subsequent encounter Qualified Code(s): T84.038D - Mechanical loosening of other internal prosthetic joint, subsequent encounter; Z96.659 - Presence of unspecified artificial knee joint (4) Asthma Priority: Secondary Status: Chronic Qualifiers: Asthma severity: unspecified severity Asthma complication type: uncomplicated Qualified Code(s): J45.909 - Unspecified asthma, uncomplicated (5) Rheumatoid arthritis Priority: Secondary Status: Chronic Qualifiers: Rheumatoid arthritis location: unspecified site Rheumatoid factor presence : unspecified presence Qualified Code(s): M06.9 - Rheumatoid arthritis, unspecified - Discharge Medications Prescriptions: DiphenhydraMINE [Benadryl] 50 mg PO Q8HR #30 capsule Doxycycline 100 mg PO BID #20 capsule FluocinoNIDE 0.05% CRM [Lidex] 60 gm TP BID 14 Days Home Medications: Aspirin Enteric Coated [Aspirin EC] 325 mg PO BID #42 tablet. 11/27/16 [Rx] OxyCODONE Immed Rel [Roxicodone 5 MG] 5 - 10 mg PO Q6HR PRN #40 tablet 11/27/16 [Rx] Albuterol Sulfate [Albuterol Inhaler] 2 puff IH Q4HR PRN 11/28/16 [History] Fluticasone Propionate Nasal [Flonase] 1 spr NS BID 11/28/16 [History] Fluticasone Propionate [Flovent Hfa] 1 puff IH BID 11/28/16 [History] Montelukast [Singulair] 10 mg PO DAILY 11/28/16 [History] Pantoprazole Sodium [Protonix] 40 mg PO DAILY 11/28/16 [History] DiphenhydraMINE [Benadryl] 50 mg PO Q8HR #30 capsule 12/02/16 [Rx] Doxycycline 100 mg PO BID #20 capsule 12/02/16 [Rx] FluocinoNIDE 0.05% CRM [Lidex] 60 gm TP BID 14 Days 12/02/16 [Rx] Allergies/Adverse Reactions: Allergies cephalexin [From Keflex] Allergy (Verified 11/29/16 23:17) Hives - Impressions ITS Impressions Knee X-Ray 12/01/16 08:07 IMPRESSION: 1. Status post uncomplicated knee arthroplasty. D/ / Yunier Mina MD / Yunier Mina MD Interpreting Provider: Yunier Mina MD Date of admission: 11/30/16 22:16 Primary care physician: Ginger Kirkpatrick, Consults: 12/01/16 07:28 Consult to Physical Therapy [CONS] Routine Comment: Evaluate, develop and implement POC - Patient Status Disposition: Home, Self-Care Condition: Good Functional capacity at discharge: uses cane/walker Overall status at discharge: patient is progressing back to baseline - Discharge Instructions Follow Up With: Giovana Le PAC [Physician Storage Battery Inspector And Tester] - 12/07/16 8:30 am - Hospital Course Hospital course: Ms. Fernandez is a 36 year old female Patient admitted with contact dermatitis secondary to activate her for Dermabond patient's pain and swelling improved discharge stable condition for infection in the knee. - Time Spent with Patient Total time spent providing and/or coordinating discharge services: - VTE Documentation of Mechanical Device: Venous foot pump, device
--- NOTE | 2016-12-02 06:25 | Orthopedics Progress Note ---
Date of Encounter: 12/02/16 Time of Encounter: 06:24 - Assessment and Plan (1) Contact dermatitis Current Visit: Yes Status: Acute Qualifiers: Contact dermatitis type: allergic Contact dermatitis trigger: adhesive Qualified Code(s): L23.1 - Allergic contact dermatitis due to adhesives (2) Acute edema Current Visit: Yes Status: Acute (3) Aseptic loosening of prosthetic knee Current Visit: No Status: Acute Qualifiers: Encounter type: subsequent encounter Qualified Code(s): T84.038D - Mechanical loosening of other internal prosthetic joint, subsequent encounter; Z96.659 - Presence of unspecified artificial knee joint (4) Asthma Current Visit: No Status: Chronic Qualifiers: Asthma severity: unspecified severity Asthma complication type: uncomplicated Qualified Code(s): J45.909 - Unspecified asthma, uncomplicated (5) Rheumatoid arthritis Current Visit: No Status: Chronic Qualifiers: Rheumatoid arthritis location: unspecified site Rheumatoid factor presence : unspecified presence Qualified Code(s): M06.9 - Rheumatoid arthritis, unspecified Subjective Interval history: Patient doing better this morning Right knee shows obvious contact dermatitis pattern Intra-articular infection Incision no sign of infection Discharge today Objective Vital signs: Vital Signs Temp Pulse Resp BP Pulse Ox 12/01/16 21:46 98.3 F 75 16 108/63 97 12/01/16 14:20 97.8 F 81 16 118/74 99 12/01/16 11:38 97.9 F 77 16 115/78 98 12/01/16 06:57 98.4 F 73 18 114/78 96 Intake and Output 12/01/16 12/01/16 12/02/16 15:59 23:59 07:59 Intake Total 400 / 400 1000 / 1000 Output Total 550 / 550 Balance -150 / -150 1000 / 1000 Intake: IV Fluids 1000 / 1000 Lactated Ringers 1,000 ML 1000 / 1000 @ 75 mls/hr IVC .[id number] MARIA E Rx#:[id number] Oral 400 / 400 Output: Urine 550 / 550 Other: Stool Characteristics Normal for Patient # Voids 2 # Bowel Movements 1 - Labs CBC & BMP: 11/30/16 20:48 11/30/16 20:48 Labs: Abnormal lab results RBC 3.53 M/mcL (3.82-4.97) L 11/30/16 20:48 Hgb 10.7 g/dL (11.5-15.4) L 11/30/16 20:48 Hct 30.7 % (35.3-44.9) L 11/30/16 20:48 MPV 9.0 fL (9.4-12.4) L 11/30/16 20:48 APTT 25.9 Seconds (26.0-36.0) L 11/30/16 20:48 Glucose 107 mg/dL (70-99) H 11/30/16 20:48 C-Reactive Protein 51 mg/L (Less than 5) H 11/30/16 20:48 - VTE Documentation of Mechanical Device: Venous foot pump, device Consult Discharge Plan - Plan Referrals: Giovana Le, PAC [Physician City Secretary] - 12/07/16 8:30 am Prescriptions: DiphenhydraMINE [Benadryl] 50 mg PO Q8HR #30 capsule Doxycycline 100 mg PO BID #20 capsule FluocinoNIDE 0.05% CRM [Lidex] 60 gm TP BID 14 Days
[2016-12-02] MEDS ORDERED: FluocinoNIDE 0.05% CRM 15 GM TUBE TP SCH (09:00)
[2016-12-02 11:04] VITALS: BP 122/76
== END 2016-12-02 13:30 | disposition home health service (06) ==
LOC: 3NENU 20:04 → EMEROO 20:04 → 3NENU 22:37
PROVIDERS: ADMIT Orthopaedic Surgery; ATTEND Orthopaedic Surgery